=== PATIENT | female | born 1995 | race Caucasian/White ===

== ENCOUNTER 2016-07-18 19:48 | Emergency (ER) | payer MEDICAID, OTHER ==
[~2016-07-18] VITALS: Ht 154.9 cm; Wt 46.3 kg
[2016-07-18 20:50] VITALS: BP 115/66
== END 2016-07-18 21:30 | disposition home or self-care (01) ==
LOC: ER 19:52
DX: Z76.0 Encounter for issue of repeat prescription (principal); F98.8 Other specified behavioral and emotional disorders with onset usually occurring in childhood and adolescence
CPT/HCPCS: 99281; A4606; Z7610; Z7502

== ENCOUNTER 2017-03-24 16:14 | Emergency (ER) | payer OTHER ==
[~2017-03-24] VITALS: Ht 157.5 cm; Wt 49.9 kg
--- NOTE | 2017-03-24 17:00 | NUR ---
PT CAME IN WITH c/o nausea vomiting x2 days cp non radiating today. NAD NOTED. VSS. SEEN BY PA FOR EVAL. URINE SAMPLE OBTAINED, SENT, SAFETY AND COMFORT MEASURES PROVIDED. WILL MONITOR,.
--- NOTE | 2017-03-24 17:40 | NUR ---
JULIANE AT BS.
[2017-03-24] MEDS ORDERED: MAG HYDROX/AL HYDROX/SIMETH 30 ML UDC PO ONE (18:00)
[2017-03-24] MEDS ORDERED: LIDOCAINE VISCOUS 2% UD 15 ML UDC MM ONE (18:00)
[2017-03-24] MEDS ORDERED: LIDOCAINE VISCOUS 2% UD 15 ML UDC ONE (18:19)
[2017-03-24] MEDS ORDERED: MAG HYDROX/AL HYDROX/SIMETH 30 ML UDC ONE (18:19)
[2017-03-24 18:28] LABS: APPEARANCE,URINE Slightly Cloudy (CLEAR); BILIRUBIN,URINE SMALL (NEGATIVE); BLOOD, URINE Negative Ery/uL (NEGATIVE); COLOR,URINE Dark (YELLOW); KETONES,URINE 40 (NEGATIVE); LEUKOCYTE ESTERASE ,URINE Negative (NEGATIVE); NITRITE, URINE Negative (NEGATIVE); PROTEIN,URINE Negative (NEGATIVE); UGLUCOSE Negative (NEGATIVE); UROBILINOGEN,URINE 0.2 EU/dL (0.2)
[2017-03-24 18:41] LABS: BACTERIA,URINE Moderate /HPF (None Seen); SQUAMOUS EPITHELIAL CELL,UR Many /HPF (None Seen)
[2017-03-24 18:44] LABS: RBC,URINE 0-2 /HPF (0-2); WBC,URINE 0-2 /HPF (0-3)
--- NOTE | 2017-03-24 18:50 | NUR ---
PT MEDICATED ORDERED.
[2017-03-24] MEDS ORDERED: FAMOTIDINE (20 MG) 20 MG TABLET ONE (18:58)
[2017-03-24] MEDS ORDERED: FAMOTIDINE (20 MG) 20 MG TABLET PO ONE (19:00)
--- NOTE | 2017-03-24 19:16 | NUR ---
Crista villanueva in [facility] - 03/24/17 at 1918 by CATIA REPORT RECEIVED FROM BRADFORD DAVALOS
--- NOTE | 2017-03-24 19:21 | NUR ---
REPORT RECEIVED FROM BRADFORD FOR PAM.
--- NOTE | 2017-03-24 19:37 | NUR ---
Patient discharged to home in stable condition. Written and verbal after care instructions given. Patient verbalizes understanding of instruction. Patient ambulatory with a steady gait.
[2017-03-24 19:38] VITALS: BP 117/74
== END 2017-03-24 19:39 | disposition home or self-care (01) ==
LOC: ER 16:51
DX: R07.89 Other chest pain (principal); R11.2 Nausea with vomiting, unspecified
CPT/HCPCS: 71010; 81001; 84703; 87086; 99285; A4606; Z7610; 81000-TC

== ENCOUNTER 2020-09-03 22:45 | Emergency (ER) | payer OTHER ==
[~2020-09-03] VITALS: Ht 154.9 cm; Wt 44.9 kg
--- NOTE | 2020-09-03 23:05 | NUR ---
pt bibself c/o lower abd pain. Pt aaox4 breathing evenly and unlabored. Pt states "my boyfriend said it burned when he peed, so I want to see if I have an STD. Pt denies n/v/d, urgency when urinating or burning. Pt attached to monitor and pox. at bedside for eval. Pt given blanket and call light within reach
--- NOTE | 2020-09-03 23:14 | NUR ---
urine sent to lab
[2020-09-03] MEDS ORDERED: LIDOCAINE /MPF 1% VIAL 5 ML VIAL ONE (23:19)
[2020-09-03] MEDS ORDERED: METRONIDAZOLE 500 MG TABLET ONE (23:20)
[2020-09-03] MEDS ORDERED: CEFTRIAXONE 1 G VIAL ONE (23:20)
[2020-09-03] MEDS ORDERED: AZITHROMYCIN 250 MG TABLET ONE (23:20)
[2020-09-03] MEDS ORDERED: CEFTRIAXONE 500 MG VIAL ONE (23:24)
[2020-09-03] MEDS ORDERED: CEFTRIAXONE 500 MG VIAL IM ONE (23:30)
[2020-09-03] MEDS ORDERED: AZITHROMYCIN 250 MG TABLET PO ONE (23:30)
[2020-09-03] MEDS ORDERED: METRONIDAZOLE 500 MG TABLET PO ONE (23:30)
--- NOTE | 2020-09-03 23:34 | NUR ---
Pt refused rocephin shot, explained the importance of the medication against gonorrhea. Pt still refused. MD cerna
[2020-09-03 23:40] LABS: BILIRUBIN,URINE SMALL (NEGATIVE); COLOR,URINE YELLOW (YELLOW); LEUKOCYTE ESTERASE ,URINE NEGATIVE (NEGATIVE); NITRITE, URINE NEGATIVE (NEGATIVE); PROTEIN,URINE NEGATIVE (NEGATIVE); UGLUCOSE NEGATIVE (NEGATIVE); UROBILINOGEN,URINE 0.2 EU/dL (0.2)
[2020-09-04 00:07] LABS: BACTERIA,URINE None seen /HPF (None Seen); MUCUS,URINE Few /LPF (None Seen); RBC,URINE 0-2 /HPF (0-2); SQUAMOUS EPITHELIAL CELL,UR Few /HPF (None Seen); WBC,URINE 0-2 /HPF (0-3)
--- NOTE | 2020-09-04 00:26 | NUR ---
Patient discharged to home in stable condition. Written and verbal after care instructions given. Patient verbalizes understanding of instruction. pT ambulatory with a steady gait
[2020-09-04 00:34] VITALS: BP 105/63
== END 2020-09-04 00:26 | disposition home or self-care (01) ==
LOC: ER 22:45
DX: Z11.3 Encounter for screening for infections with a predominantly sexual mode of transmission (principal)
CPT/HCPCS: 81001; 84703; 87491; 87591; 99283; J3490; J0696